=== PATIENT | male | born 1960 | race Caucasian/White ===

== ENCOUNTER 2020-03-27 19:14 | Inpatient (IN) | payer SELFPAY ==
[~2020-03-27] VITALS: Ht 177.8 cm; Wt 81.2 kg
[2020-03-27 21:43] LABS: CLARITY,URINE SL CLOUDY (CLEAR); COLOR,URINE YELLOW (YELLOW); KETONES,URINE 2+ (NEGATIVE); LEUKOCYTE ESTERASE ,URINE NEGATIVE (NEGATIVE); NITRITE,URINE NEGATIVE (NEGATIVE); PROTEIN,URINE DIPSTICK NEGATIVE (NEGATIVE); URINE UROBILINOGEN 0.2 mg/dL (0.2 - 1)
[2020-03-27 21:55] LABS: EPITHELIAL CELLS,URINE FEW /LPF; RBC,URINE 0-5 /HPF (0-5)
[2020-03-27] MEDS ORDERED: DIAZEPAM 5 MG TAB PO SCH (23:00)
[2020-03-27] MEDS ORDERED: KETOROLAC TROMETHAMINE 60 MG/2 ML VIAL IM ONE (23:00)
[2020-03-27] MEDS ORDERED: METHYLPREDNISOLONE SOD SUCC 125 MG/2ML VIAL IM ONE (23:00)
[2020-03-28] VITALS (8 sets, daily range): BP systolic 116–174; BP diastolic 55–105
[2020-03-28] MEDS ORDERED: METHYLPREDNISOLONE SOD SUCC 125 MG/2ML VIAL IM ONE (00:30)
[2020-03-28] MEDS ORDERED: KETOROLAC TROMETHAMINE 60 MG/2 ML VIAL IM ONE (00:30)
[2020-03-28] MEDS ORDERED: KETOROLAC TROMETHAMINE 60 MG/2 ML VIAL ONE (00:31)
[2020-03-28] MEDS ORDERED: LIDOCAINE 4% PATCH TP ONE ×2 (00:32→01:45)
[2020-03-28] MEDS: DIAZEPAM 5 MG TAB PO SCH (00:32)
[2020-03-28] MEDS ORDERED: ONDANSETRON HCL INJ 2MG/ML 2ML 2 MG/ML VIAL IV PRN (04:30)
[2020-03-28 05:10] LABS: BASOPHILS % 0.3 % (0.0-1.0); EOSINOPHILS % 0.2 % (0.0-6.0); HEMATOCRIT 46.5 % (38.2-49.6); HEMOGLOBIN 14.9 g/dL (14.0-18.0); LYMPHOCYTES # (AUTO) 0.5 (1.0-3.2); LYMPHOCYTES % 8.5 % (18.0-39.1); MEAN CORPUSCULAR HEMOGLOBIN 25.8 pg (28-32); MEAN CORPUSCULAR VOLUME 80.4 fL (81-99); MONOCYTES # (AUTO) 0.1 (0.2-0.8); MONOCYTES % 1.8 % (4.4-11.3); NEUTROPHILS # (AUTO) 5.3 (2.1-6.9); NEUTROPHILS % 88.7 % (38.7-80.0); PLATELET COUNT 296 x10e3/uL (140-360); RED BLOOD COUNT 5.78 x10e6/uL (4.3-5.7); RED CELL DISTRIBUTION WIDTH 14.6 % (11.7-14.4)
[2020-03-28 05:27] LABS: ALANINE AMINOTRANSFERASE 27 IU/L (0-55); ALBUMIN 3.8 g/dL (3.5-5.0); ALBUMIN/GLOBULIN RATIO 1.4 (0.8-2.0); ALKALINE PHOSPHATASE 66 IU/L (40-150); ANION GAP 13.8 mmol/L (8-16); BLOOD UREA NITROGEN 7 mg/dL (7-26); BUN/CREATININE RATIO 8 (6-25); CALCIUM 8.7 mg/dL (8.4-10.2); CARBON DIOXIDE 25 mmol/L (22-29); CHLORIDE 104 mmol/L (98-107); CREATININE, SERUM 0.83 mg/dL (0.72-1.25); EST GLOMERULAR FILTRATION RATE > 60 ML/MIN (60-); GLUCOSE 124 mg/dL (74-118); POTASSIUM 3.8 mmol/L (3.5-5.1); SODIUM 139 mmol/L (136-145)
[2020-03-28] MEDS ORDERED: LOSARTAN POTAS100 MG PO (06:26)
[2020-03-28] MEDS ORDERED: AMLODIPINE PO (06:26)
[2020-03-28] MEDS ORDERED: HYDROCHLOROTHIA25 MG PO (06:26)
[2020-03-28] MEDS ORDERED: HYDRALAZINE HCL 20 MG/ML VIAL IV PRN (10:15)
[2020-03-28] MEDS ORDERED: AMLODIPINE PO SCH (12:45)
[2020-03-28] MEDS: LOSARTAN POTASSIUM 100 MG TAB PO SCH (13:32)
[2020-03-28] MEDS: HYDROCHLOROTHIAZIDE 25 MG TAB PO SCH (13:33)
[2020-03-28] MEDS: AMLODIPINE BESYLATE 10 MG TAB PO SCH (13:34)
[2020-03-28] MEDS: DEXTROSE 5%/0.45% SOD CHL 1,000 ML IV SCH (16:00)
[2020-03-28] MEDS: FAMOTIDINE 20 MG/2 ML VIAL IV SCH (17:17)
[2020-03-29] VITALS (8 sets, daily range): BP systolic 123–151; BP diastolic 71–92
[2020-03-29 05:54] LABS: BASOPHILS % 0.4 % (0.0-1.0); EOSINOPHILS # (AUTO) 0.1 (0.0-0.4); EOSINOPHILS % 0.6 % (0.0-6.0); HEMOGLOBIN 15.8 g/dL (14.0-18.0); LYMPHOCYTES # (AUTO) 2.2 (1.0-3.2); LYMPHOCYTES % 26.9 % (18.0-39.1); MEAN CORPUSCULAR HEMOGLOBIN 25.9 pg (28-32); MEAN CORPUSCULAR HGB CONC 32.2 g/dL (31-35); MEAN CORPUSCULAR VOLUME 80.2 fL (81-99); MONOCYTES # (AUTO) 0.9 (0.2-0.8); NEUTROPHILS % 60.6 % (38.7-80.0); PLATELET COUNT 330 x10e3/uL (140-360); RED BLOOD COUNT 6.11 x10e6/uL (4.3-5.7); RED CELL DISTRIBUTION WIDTH 14.8 % (11.7-14.4)
[2020-03-29 06:29] LABS: ANION GAP 13.4 mmol/L (8-16); BLOOD UREA NITROGEN 12 mg/dL (7-26); BUN/CREATININE RATIO 11 (6-25); CALCIUM 8.9 mg/dL (8.4-10.2); CARBON DIOXIDE 25 mmol/L (22-29); CHLORIDE 104 mmol/L (98-107); CHOL/HDL RATIO 1.9 (3.9-4.7); CHOLESTEROL 137 MD/DL (0-199); CREATININE, SERUM 1.12 mg/dL (0.72-1.25); EST GLOMERULAR FILTRATION RATE > 60 ML/MIN (60-); GLUCOSE 121 mg/dL (74-118); HDL CHOLESTEROL 74 MG/DL (40-60); LDL CHOLESTEROL 55 MG/DL (60-130); MAGNESIUM 2.1 MG/DL (1.3-2.1); PHOSPHORUS 3.7 MG/DL (2.3-4.7); POTASSIUM 3.4 mmol/L (3.5-5.1); SODIUM 139 mmol/L (136-145); TRIGLYCERIDES 39 MG/DL (0-149)
[2020-03-29 07:06] LABS: THYROID STIMULATING HORMONE 1.362 uIU/mL (0.350-4.940)
[2020-03-29] MEDS: DEXTROSE 5%/0.45% SOD CHL 1,000 ML IV SCH ×3 (07:30→21:31)
[2020-03-29] MEDS: DIAZEPAM 5 MG TAB PO SCH (09:00)
[2020-03-29] MEDS: FAMOTIDINE 20 MG/2 ML VIAL IV SCH ×2 (09:03→17:07)
[2020-03-29] MEDS: MORPHINE SULFATE INJ 4 MG/ML INJ 1ML IV PRN (09:03)
[2020-03-29] MEDS: HYDROCHLOROTHIAZIDE 25 MG TAB PO SCH (09:04)
[2020-03-29] MEDS: AMLODIPINE BESYLATE 10 MG TAB PO SCH (09:04)
[2020-03-29] MEDS: LOSARTAN POTASSIUM 100 MG TAB PO SCH (09:04)
[2020-03-29] MEDS ORDERED: BISACODYL 5 MG TAB EC PO ONE ×3 (20:30→21:30)
[2020-03-29] MEDS ORDERED: CITRATE OF MAGNESIA 300ML BOTTLE PO ONE (23:00)
[2020-03-30] VITALS (7 sets, daily range): BP systolic 128–155; BP diastolic 88–96
[2020-03-30] MEDS ORDERED: CITRATE OF MAGNESIA 300ML BOTTLE PO ONE (05:00)
[2020-03-30 05:47] LABS: BASOPHILS # (AUTO) 0.1 (0.0-0.1); BASOPHILS % 0.6 % (0.0-1.0); EOSINOPHILS # (AUTO) 0.2 (0.0-0.4); EOSINOPHILS % 1.9 % (0.0-6.0); HEMATOCRIT 53.3 % (38.2-49.6); HEMOGLOBIN 16.7 g/dL (14.0-18.0); LYMPHOCYTES # (AUTO) 2.3 (1.0-3.2); LYMPHOCYTES % 27.9 % (18.0-39.1); MEAN CORPUSCULAR HEMOGLOBIN 25.7 pg (28-32); MEAN CORPUSCULAR HGB CONC 31.3 g/dL (31-35); MEAN CORPUSCULAR VOLUME 81.9 fL (81-99); MONOCYTES # (AUTO) 0.8 (0.2-0.8); MONOCYTES % 10.3 % (4.4-11.3); NEUTROPHILS # (AUTO) 4.7 (2.1-6.9); NEUTROPHILS % 58.3 % (38.7-80.0); PLATELET COUNT 350 x10e3/uL (140-360); RED BLOOD COUNT 6.51 x10e6/uL (4.3-5.7); RED CELL DISTRIBUTION WIDTH 15.7 % (11.7-14.4)
[2020-03-30 06:07] LABS: ANION GAP 12.5 mmol/L (8-16); BLOOD UREA NITROGEN 9 mg/dL (7-26); BUN/CREATININE RATIO 9 (6-25); CALCIUM 9.5 mg/dL (8.4-10.2); CARBON DIOXIDE 25 mmol/L (22-29); CHLORIDE 103 mmol/L (98-107); CREATININE, SERUM 1.04 mg/dL (0.72-1.25); EST GLOMERULAR FILTRATION RATE > 60 ML/MIN (60-); GLUCOSE 127 mg/dL (74-118); POTASSIUM 3.5 mmol/L (3.5-5.1); SODIUM 137 mmol/L (136-145)
[2020-03-30] MEDS: DEXTROSE 5%/0.45% SOD CHL 1,000 ML IV SCH ×2 (06:33→15:59)
[2020-03-30] MEDS: AMLODIPINE BESYLATE 10 MG TAB PO SCH (09:00)
[2020-03-30] MEDS: LOSARTAN POTASSIUM 100 MG TAB PO SCH (09:00)
[2020-03-30] MEDS: DIAZEPAM 5 MG TAB PO SCH (09:00)
[2020-03-30] MEDS: HYDROCHLOROTHIAZIDE 25 MG TAB PO SCH (09:00)
[2020-03-30] MEDS: FAMOTIDINE 20 MG/2 ML VIAL IV SCH ×2 (09:55→18:04)
[2020-03-30] MEDS ORDERED: FENTANYL CITRATE/PF 100MCG/2 ML INJ ONE (12:47)
[2020-03-30] MEDS ORDERED: MIDAZOLAM HCL 2 MG/2 ML VIAL ONE (12:47)
[2020-03-30] MEDS ORDERED: PROPOFOL IV EMULSION 10 MG/ML 20 ML VIAL ONE (12:52)
[2020-03-30] MEDS ORDERED: MINERAL OIL/PETROLAT/GLYCERI 6OZ BTL TOP SCH (15:00)
[2020-03-30] MEDS: MINERAL OIL/PETROLAT/GLYCERI 6OZ BTL TOP SCH ×2 (18:03→21:00)
[2020-03-31] VITALS (9 sets, daily range): BP systolic 102–149; BP diastolic 63–100
[2020-03-31] MEDS: MORPHINE SULFATE INJ 4 MG/ML INJ 1ML IV PRN ×3 (00:35→15:41)
[2020-03-31] MEDS: DEXTROSE 5%/0.45% SOD CHL 1,000 ML IV SCH ×3 (01:17→22:48)
[2020-03-31 05:12] LABS: BASOPHILS % 0.3 % (0.0-1.0); EOSINOPHILS # (AUTO) 0.1 (0.0-0.4); EOSINOPHILS % 0.9 % (0.0-6.0); HEMATOCRIT 47.6 % (38.2-49.6); LYMPHOCYTES # (AUTO) 1.8 (1.0-3.2); LYMPHOCYTES % 13.7 % (18.0-39.1); MEAN CORPUSCULAR HEMOGLOBIN 25.4 pg (28-32); MEAN CORPUSCULAR HGB CONC 31.5 g/dL (31-35); MEAN CORPUSCULAR VOLUME 80.7 fL (81-99); MONOCYTES # (AUTO) 0.8 (0.2-0.8); MONOCYTES % 6.4 % (4.4-11.3); NEUTROPHILS # (AUTO) 10.1 (2.1-6.9); NEUTROPHILS % 78.2 % (38.7-80.0); PLATELET COUNT 279 x10e3/uL (140-360); RED CELL DISTRIBUTION WIDTH 14.6 % (11.7-14.4)
[2020-03-31 05:40] LABS: ANION GAP 8.9 mmol/L (8-16); BLOOD UREA NITROGEN 10 mg/dL (7-26); BUN/CREATININE RATIO 10 (6-25); CALCIUM 8.1 mg/dL (8.4-10.2); CARBON DIOXIDE 28 mmol/L (22-29); CHLORIDE 106 mmol/L (98-107); CREATININE, SERUM 0.97 mg/dL (0.72-1.25); EST GLOMERULAR FILTRATION RATE > 60 ML/MIN (60-); GLUCOSE 104 mg/dL (74-118); POTASSIUM 3.9 mmol/L (3.5-5.1); SODIUM 139 mmol/L (136-145)
[2020-03-31] MEDS: MINERAL OIL/PETROLAT/GLYCERI 6OZ BTL TOP SCH ×3 (07:22→20:46)
[2020-03-31] MEDS: DIAZEPAM 5 MG TAB PO SCH (07:22)
[2020-03-31] MEDS: LOSARTAN POTASSIUM 100 MG TAB PO SCH (07:22)
[2020-03-31] MEDS: FAMOTIDINE 20 MG/2 ML VIAL IV SCH ×2 (07:22→17:18)
[2020-03-31] MEDS: HYDROCHLOROTHIAZIDE 25 MG TAB PO SCH (07:22)
[2020-03-31] MEDS: AMLODIPINE BESYLATE 10 MG TAB PO SCH (07:23)
[2020-04-01] VITALS (8 sets, daily range): BP systolic 106–138; BP diastolic 68–90
[2020-04-01 05:50] LABS: ANION GAP 10.5 mmol/L (8-16); BLOOD UREA NITROGEN 11 mg/dL (7-26); BUN/CREATININE RATIO 12 (6-25); CALCIUM 8.3 mg/dL (8.4-10.2); CARBON DIOXIDE 28 mmol/L (22-29); CHLORIDE 104 mmol/L (98-107); CREATININE, SERUM 0.95 mg/dL (0.72-1.25); EST GLOMERULAR FILTRATION RATE > 60 ML/MIN (60-); GLUCOSE 102 mg/dL (74-118); POTASSIUM 3.5 mmol/L (3.5-5.1); SODIUM 139 mmol/L (136-145)
[2020-04-01 05:53] LABS: BASOPHILS % 0.5 % (0.0-1.0); EOSINOPHILS # (AUTO) 0.2 (0.0-0.4); EOSINOPHILS % 2.1 % (0.0-6.0); HEMATOCRIT 43.6 % (38.2-49.6); LYMPHOCYTES # (AUTO) 2.2 (1.0-3.2); LYMPHOCYTES % 25.8 % (18.0-39.1); MEAN CORPUSCULAR HEMOGLOBIN 26.1 pg (28-32); MEAN CORPUSCULAR HGB CONC 32.1 g/dL (31-35); MEAN CORPUSCULAR VOLUME 81.2 fL (81-99); MONOCYTES # (AUTO) 0.9 (0.2-0.8); MONOCYTES % 9.9 % (4.4-11.3); NEUTROPHILS # (AUTO) 5.2 (2.1-6.9); NEUTROPHILS % 60.8 % (38.7-80.0); PLATELET COUNT 274 x10e3/uL (140-360); RED BLOOD COUNT 5.37 x10e6/uL (4.3-5.7); RED CELL DISTRIBUTION WIDTH 14.6 % (11.7-14.4)
[2020-04-01] MEDS ORDERED: POTASSIUM CHLORIDE 20 MEQ in DEXTROSE 5%/0.45% SOD CHL 1,000 ML IV SCH (08:07)
[2020-04-01] MEDS: FAMOTIDINE 20 MG/2 ML VIAL IV SCH ×2 (08:44→17:47)
[2020-04-01] MEDS: HYDROCHLOROTHIAZIDE 25 MG TAB PO SCH (08:45)
[2020-04-01] MEDS: AMLODIPINE BESYLATE 10 MG TAB PO SCH (08:45)
[2020-04-01] MEDS: LOSARTAN POTASSIUM 100 MG TAB PO SCH (08:46)
[2020-04-01] MEDS: DIAZEPAM 5 MG TAB PO SCH (08:46)
[2020-04-01] MEDS: MINERAL OIL/PETROLAT/GLYCERI 6OZ BTL TOP SCH ×3 (08:46→20:20)
[2020-04-01] MEDS ORDERED: POTASSIUM CHLORIDE 20 MEQ TAB CR PO NR (09:04)
[2020-04-01] MEDS ORDERED: PEG (High)/E-LYTE SOLN 4,000 ML BTL PO NR (10:00)
[2020-04-01] MEDS: D5.45%NS/KCL 20MEQ 1,000 ML IV SCH (16:33)
[2020-04-02] VITALS (7 sets, daily range): BP systolic 126–138; BP diastolic 80–93
[2020-04-02] MEDS: D5.45%NS/KCL 20MEQ 1,000 ML IV SCH ×3 (03:12→20:55)
[2020-04-02 06:17] LABS: BASOPHILS % 0.7 % (0.0-1.0); EOSINOPHILS # (AUTO) 0.2 (0.0-0.4); EOSINOPHILS % 3.7 % (0.0-6.0); HEMOGLOBIN 13.8 g/dL (14.0-18.0); LYMPHOCYTES # (AUTO) 1.5 (1.0-3.2); LYMPHOCYTES % 26.6 % (18.0-39.1); MEAN CORPUSCULAR HEMOGLOBIN 25.5 pg (28-32); MEAN CORPUSCULAR HGB CONC 32.1 g/dL (31-35); MEAN CORPUSCULAR VOLUME 79.5 fL (81-99); MONOCYTES # (AUTO) 0.6 (0.2-0.8); NEUTROPHILS # (AUTO) 3.3 (2.1-6.9); NEUTROPHILS % 57.3 % (38.7-80.0); PLATELET COUNT 259 x10e3/uL (140-360); RED BLOOD COUNT 5.41 x10e6/uL (4.3-5.7); RED CELL DISTRIBUTION WIDTH 14.9 % (11.7-14.4)
[2020-04-02 06:39] LABS: ALANINE AMINOTRANSFERASE 23 IU/L (0-55); ALBUMIN 2.9 g/dL (3.5-5.0); ALBUMIN/GLOBULIN RATIO 1.1 (0.8-2.0); ALKALINE PHOSPHATASE 48 IU/L (40-150); ANION GAP 10.5 mmol/L (8-16); BLOOD UREA NITROGEN 7 mg/dL (7-26); BUN/CREATININE RATIO 9 (6-25); CALCIUM 8.3 mg/dL (8.4-10.2); CARBON DIOXIDE 28 mmol/L (22-29); CHLORIDE 104 mmol/L (98-107); CREATININE, SERUM 0.77 mg/dL (0.72-1.25); EST GLOMERULAR FILTRATION RATE > 60 ML/MIN (60-); GLUCOSE 123 mg/dL (74-118); POTASSIUM 3.5 mmol/L (3.5-5.1); SODIUM 139 mmol/L (136-145)
[2020-04-02 07:00] LABS: MAGNESIUM 1.9 MG/DL (1.3-2.1); PHOSPHORUS 3.4 MG/DL (2.3-4.7)
[2020-04-02] MEDS: LOSARTAN POTASSIUM 100 MG TAB PO SCH (09:29)
[2020-04-02] MEDS: FAMOTIDINE 20 MG/2 ML VIAL IV SCH ×2 (09:29→18:04)
[2020-04-02] MEDS: MINERAL OIL/PETROLAT/GLYCERI 6OZ BTL TOP SCH ×3 (09:30→21:26)
[2020-04-02] MEDS: DIAZEPAM 5 MG TAB PO SCH (09:30)
[2020-04-02] MEDS: HYDROCHLOROTHIAZIDE 25 MG TAB PO SCH (09:30)
[2020-04-02] MEDS: AMLODIPINE BESYLATE 10 MG TAB PO SCH (09:30)
[2020-04-02] MEDS ORDERED: BUPIVACAINE 0.5%/EPI 30 ML SDV INJ ONE (11:25)
[2020-04-02] MEDS ORDERED: MORPHINE SULFATE INJ 10 MG/ML ONE (13:00)
[2020-04-02] MEDS ORDERED: FENTANYL CITRATE/PF 100MCG/2 ML INJ ONE (13:00)
[2020-04-02] MEDS ORDERED: ATROPINE SULFATE 1 MG/ML VIAL ONE (13:23)
[2020-04-02] MEDS ORDERED: CEFAZOLIN SOD 1 GM VIAL ONE (13:23)
[2020-04-02] MEDS ORDERED: SEVOFLURANE INHAL SOLN 250 ML PEN BTL ONE (13:23)
[2020-04-02] MEDS ORDERED: ONDANSETRON HCL INJ 2MG/ML 2ML 2 MG/ML VIAL ONE (13:23)
[2020-04-02] MEDS ORDERED: DEXAMETHASONE SOD PHOS INJ 4 MG/ML VIAL ONE (13:23)
[2020-04-02] MEDS ORDERED: ROCURONIUM BROMIDE 10 MG/ML 5ML VIAL IV ONE (13:23)
[2020-04-02] MEDS ORDERED: CEFOXITIN SOD 1 GM VIAL ONE (13:23)
[2020-04-02] MEDS ORDERED: NEOSTIGMINE 1 MG/ML 10ML VIAL ONE (13:23)
[2020-04-02] MEDS ORDERED: PROPOFOL IV EMULSION 10 MG/ML 20 ML VIAL ONE (13:23)
[2020-04-02] MEDS ORDERED: KETOROLAC TROMETHAMINE 30 MG/ML VIAL ONE (13:23)
[2020-04-02] MEDS ORDERED: CEFOXITIN 1GM/0.9% NS 50ML 100 ML IV ONE (15:50)
[2020-04-02] MEDS: ONDANSETRON HCL 4 MG ORAL DISINTEGRATING TAB PO PRN ×2 (18:05→22:19)
[2020-04-02] MEDS: MORPHINE SULFATE INJ 4 MG/ML INJ 1ML IV PRN ×2 (18:06→22:19)
[2020-04-03] VITALS (8 sets, daily range): BP systolic 108–142; BP diastolic 75–91
[2020-04-03] MEDS: CEFOXITIN 1GM/0.9% NS 50ML 50 ML IV SCH ×5 (01:48→23:26)
[2020-04-03] MEDS: ONDANSETRON HCL 4 MG ORAL DISINTEGRATING TAB PO PRN ×3 (02:40→19:22)
[2020-04-03] MEDS: MORPHINE SULFATE INJ 4 MG/ML INJ 1ML IV PRN ×2 (02:40→07:28)
[2020-04-03] MEDS: D5.45%NS/KCL 20MEQ 1,000 ML IV SCH ×3 (03:13→20:55)
[2020-04-03 05:48] LABS: BASOPHILS % 0.1 % (0.0-1.0); EOSINOPHILS % 0.1 % (0.0-6.0); HEMATOCRIT 40.4 % (38.2-49.6); HEMOGLOBIN 13.1 g/dL (14.0-18.0); LYMPHOCYTES # (AUTO) 0.8 (1.0-3.2); LYMPHOCYTES % 6.8 % (18.0-39.1); MEAN CORPUSCULAR HEMOGLOBIN 25.8 pg (28-32); MEAN CORPUSCULAR HGB CONC 32.4 g/dL (31-35); MEAN CORPUSCULAR VOLUME 79.5 fL (81-99); MONOCYTES # (AUTO) 1.2 (0.2-0.8); MONOCYTES % 10.1 % (4.4-11.3); NEUTROPHILS # (AUTO) 9.9 (2.1-6.9); NEUTROPHILS % 82.2 % (38.7-80.0); PLATELET COUNT 247 x10e3/uL (140-360); RED BLOOD COUNT 5.08 x10e6/uL (4.3-5.7); RED CELL DISTRIBUTION WIDTH 14.8 % (11.7-14.4)
[2020-04-03 06:15] LABS: ALANINE AMINOTRANSFERASE 22 IU/L (0-55); ALBUMIN 2.7 g/dL (3.5-5.0); ALKALINE PHOSPHATASE 39 IU/L (40-150); ANION GAP 13.6 mmol/L (8-16); BLOOD UREA NITROGEN 7 mg/dL (7-26); BUN/CREATININE RATIO 8 (6-25); CALCIUM 8.1 mg/dL (8.4-10.2); CARBON DIOXIDE 23 mmol/L (22-29); CHLORIDE 103 mmol/L (98-107); CREATININE, SERUM 0.87 mg/dL (0.72-1.25); EST GLOMERULAR FILTRATION RATE > 60 ML/MIN (60-); GLUCOSE 160 mg/dL (74-118); LIPASE 20 U/L (8-78); POTASSIUM 3.6 mmol/L (3.5-5.1); SODIUM 136 mmol/L (136-145)
[2020-04-03] MEDS ORDERED: MORPHINE SULFATE INJ 4 MG/ML INJ 1ML IV PRN (08:15)
[2020-04-03] MEDS: FAMOTIDINE 20 MG/2 ML VIAL IV SCH ×2 (08:44→17:16)
[2020-04-03] MEDS: HYDROCHLOROTHIAZIDE 25 MG TAB PO SCH (08:45)
[2020-04-03] MEDS: LOSARTAN POTASSIUM 100 MG TAB PO SCH (08:45)
[2020-04-03] MEDS: AMLODIPINE BESYLATE 10 MG TAB PO SCH (08:45)
[2020-04-03] MEDS: DIAZEPAM 5 MG TAB PO SCH (08:46)
[2020-04-03] MEDS: MINERAL OIL/PETROLAT/GLYCERI 6OZ BTL TOP SCH ×3 (08:47→21:46)
[2020-04-03] MEDS: ACETAMINOPHEN/CODEINE 300MG - 30MG TAB PO PRN ×3 (08:51→21:40)
[2020-04-03] MEDS ORDERED: LACTATED RINGER'S 1,000 ML INJ SCH (12:30)
[2020-04-03] MEDS: HYDROMORPHONE 1MG/1ML INJ IV PRN (19:22)
[2020-04-04] VITALS (7 sets, daily range): BP systolic 116–132; BP diastolic 70–86
[2020-04-04] MEDS: HYDROMORPHONE 1MG/1ML INJ IV PRN ×6 (01:44→22:40)
[2020-04-04] MEDS: ONDANSETRON HCL 4 MG ORAL DISINTEGRATING TAB PO PRN (01:44)
[2020-04-04] MEDS: D5.45%NS/KCL 20MEQ 1,000 ML IV SCH ×3 (03:03→19:00)
[2020-04-04] MEDS: ACETAMINOPHEN/CODEINE 300MG - 30MG TAB PO PRN (03:48)
[2020-04-04 06:31] LABS: BASOPHILS % 0.2 % (0.0-1.0); EOSINOPHILS # (AUTO) 0.1 (0.0-0.4); EOSINOPHILS % 0.9 % (0.0-6.0); HEMATOCRIT 39.2 % (38.2-49.6); HEMOGLOBIN 12.6 g/dL (14.0-18.0); LYMPHOCYTES % 9.1 % (18.0-39.1); MEAN CORPUSCULAR HEMOGLOBIN 25.6 pg (28-32); MEAN CORPUSCULAR HGB CONC 32.1 g/dL (31-35); MEAN CORPUSCULAR VOLUME 79.5 fL (81-99); MONOCYTES # (AUTO) 1.3 (0.2-0.8); MONOCYTES % 11.9 % (4.4-11.3); NEUTROPHILS # (AUTO) 8.3 (2.1-6.9); NEUTROPHILS % 76.9 % (38.7-80.0); PLATELET COUNT 249 x10e3/uL (140-360); RED BLOOD COUNT 4.93 x10e6/uL (4.3-5.7); RED CELL DISTRIBUTION WIDTH 15.3 % (11.7-14.4)
[2020-04-04 07:01] LABS: ALANINE AMINOTRANSFERASE 19 IU/L (0-55); ALBUMIN 2.5 g/dL (3.5-5.0); ALBUMIN/GLOBULIN RATIO 0.8 (0.8-2.0); ALKALINE PHOSPHATASE 48 IU/L (40-150); ANION GAP 12.3 mmol/L (8-16); BLOOD UREA NITROGEN 5 mg/dL (7-26); BUN/CREATININE RATIO 6 (6-25); CALCIUM 8.4 mg/dL (8.4-10.2); CARBON DIOXIDE 26 mmol/L (22-29); CHLORIDE 101 mmol/L (98-107); CREATININE, SERUM 0.84 mg/dL (0.72-1.25); EST GLOMERULAR FILTRATION RATE > 60 ML/MIN (60-); GLUCOSE 125 mg/dL (74-118); POTASSIUM 3.3 mmol/L (3.5-5.1); SODIUM 136 mmol/L (136-145)
[2020-04-04] MEDS: LOSARTAN POTASSIUM 100 MG TAB PO SCH (09:05)
[2020-04-04] MEDS: AMLODIPINE BESYLATE 10 MG TAB PO SCH (09:05)
[2020-04-04] MEDS: HYDROCHLOROTHIAZIDE 25 MG TAB PO SCH (09:05)
[2020-04-04] MEDS: MINERAL OIL/PETROLAT/GLYCERI 6OZ BTL TOP SCH ×3 (09:06→21:00)
[2020-04-04] MEDS: FAMOTIDINE 20 MG/2 ML VIAL IV SCH ×2 (09:09→17:41)
[2020-04-04] MEDS ORDERED: POTASSIUM CHLORIDE 10MEQ EA PO ONE (09:40)
[2020-04-04] MEDS: DOCUSATE SODIUM 100 MG CAP PO SCH (17:41)
[2020-04-04] MEDS ORDERED: CEFOXITIN 1GM/0.9% NS 50ML 50 ML IV SCH (18:00)
[2020-04-04] MEDS: LIDOCAINE 4% PATCH TP SCH (18:05)
[2020-04-05] VITALS (7 sets, daily range): BP systolic 122–155; BP diastolic 78–90
[2020-04-05] MEDS: HYDROMORPHONE 1MG/1ML INJ IV PRN ×5 (03:39→23:25)
[2020-04-05] MEDS: D5.45%NS/KCL 20MEQ 1,000 ML IV SCH ×3 (04:38→21:28)
[2020-04-05] MEDS: FAMOTIDINE 20 MG/2 ML VIAL IV SCH ×2 (08:21→17:17)
[2020-04-05] MEDS: LIDOCAINE 4% PATCH TP SCH (08:22)
[2020-04-05] MEDS: MINERAL OIL/PETROLAT/GLYCERI 6OZ BTL TOP SCH ×3 (08:22→21:24)
[2020-04-05] MEDS: AMLODIPINE BESYLATE 10 MG TAB PO SCH (08:22)
[2020-04-05] MEDS: HYDROCHLOROTHIAZIDE 25 MG TAB PO SCH (08:22)
[2020-04-05] MEDS: DOCUSATE SODIUM 100 MG CAP PO SCH ×2 (08:22→17:17)
[2020-04-05] MEDS: LOSARTAN POTASSIUM 100 MG TAB PO SCH (08:22)
[2020-04-05 09:19] LABS: BASOPHILS # (AUTO) 0.1 (0.0-0.1); EOSINOPHILS # (AUTO) 0.2 (0.0-0.4); EOSINOPHILS % 1.6 % (0.0-6.0); HEMATOCRIT 43.5 % (38.2-49.6); HEMOGLOBIN 13.7 g/dL (14.0-18.0); LYMPHOCYTES # (AUTO) 0.8 (1.0-3.2); LYMPHOCYTES % 8.6 % (18.0-39.1); MEAN CORPUSCULAR HEMOGLOBIN 25.8 pg (28-32); MEAN CORPUSCULAR HGB CONC 31.5 g/dL (31-35); MEAN CORPUSCULAR VOLUME 82.1 fL (81-99); MONOCYTES # (AUTO) 0.9 (0.2-0.8); MONOCYTES % 9.6 % (4.4-11.3); NEUTROPHILS # (AUTO) 7.2 (2.1-6.9); NEUTROPHILS % 77.8 % (38.7-80.0); PLATELET COUNT 222 x10e3/uL (140-360); RED CELL DISTRIBUTION WIDTH 15.3 % (11.7-14.4)
[2020-04-05 09:46] LABS: ANION GAP 11.5 mmol/L (8-16); BLOOD UREA NITROGEN 5 mg/dL (7-26); BUN/CREATININE RATIO 7 (6-25); CALCIUM 8.7 mg/dL (8.4-10.2); CARBON DIOXIDE 26 mmol/L (22-29); CHLORIDE 101 mmol/L (98-107); CREATININE, SERUM 0.71 mg/dL (0.72-1.25); EST GLOMERULAR FILTRATION RATE > 60 ML/MIN (60-); GLUCOSE 140 mg/dL (74-118); MAGNESIUM 1.9 MG/DL (1.3-2.1); POTASSIUM 3.5 mmol/L (3.5-5.1); SODIUM 135 mmol/L (136-145)
[2020-04-05] MEDS: ACETAMINOPHEN/CODEINE 300MG - 30MG TAB PO PRN ×2 (11:09→17:18)
[2020-04-06] VITALS (8 sets, daily range): BP systolic 105–140; BP diastolic 69–87
[2020-04-06] MEDS: D5.45%NS/KCL 20MEQ 1,000 ML IV SCH ×3 (04:55→23:39)
[2020-04-06] MEDS: ACETAMINOPHEN/CODEINE 300MG - 30MG TAB PO PRN (06:09)
[2020-04-06 07:02] LABS: BASOPHILS # (AUTO) 0.1 (0.0-0.1); BASOPHILS % 0.6 % (0.0-1.0); EOSINOPHILS # (AUTO) 0.3 (0.0-0.4); HEMATOCRIT 39.9 % (38.2-49.6); HEMOGLOBIN 12.7 g/dL (14.0-18.0); LYMPHOCYTES # (AUTO) 1.2 (1.0-3.2); LYMPHOCYTES % 12.6 % (18.0-39.1); MEAN CORPUSCULAR HEMOGLOBIN 25.3 pg (28-32); MEAN CORPUSCULAR HGB CONC 31.8 g/dL (31-35); MEAN CORPUSCULAR VOLUME 79.5 fL (81-99); MONOCYTES # (AUTO) 0.8 (0.2-0.8); NEUTROPHILS # (AUTO) 6.7 (2.1-6.9); NEUTROPHILS % 71.9 % (38.7-80.0); PLATELET COUNT 304 x10e3/uL (140-360); RED BLOOD COUNT 5.02 x10e6/uL (4.3-5.7); RED CELL DISTRIBUTION WIDTH 15.1 % (11.7-14.4)
[2020-04-06 07:28] LABS: ALANINE AMINOTRANSFERASE 15 IU/L (0-55); ALBUMIN 2.5 g/dL (3.5-5.0); ALBUMIN/GLOBULIN RATIO 0.7 (0.8-2.0); ALKALINE PHOSPHATASE 50 IU/L (40-150); ANION GAP 14.4 mmol/L (8-16); BLOOD UREA NITROGEN 5 mg/dL (7-26); BUN/CREATININE RATIO 7 (6-25); CALCIUM 8.8 mg/dL (8.4-10.2); CARBON DIOXIDE 26 mmol/L (22-29); CHLORIDE 100 mmol/L (98-107); CREATININE, SERUM 0.73 mg/dL (0.72-1.25); EST GLOMERULAR FILTRATION RATE > 60 ML/MIN (60-); GLUCOSE 108 mg/dL (74-118); MAGNESIUM 1.8 MG/DL (1.3-2.1); PHOSPHORUS 3.2 MG/DL (2.3-4.7); POTASSIUM 3.4 mmol/L (3.5-5.1); SODIUM 137 mmol/L (136-145)
[2020-04-06] MEDS: FAMOTIDINE 20 MG/2 ML VIAL IV SCH ×2 (09:28→17:27)
[2020-04-06] MEDS: DOCUSATE SODIUM 100 MG CAP PO SCH ×2 (09:28→17:27)
[2020-04-06] MEDS: AMLODIPINE BESYLATE 10 MG TAB PO SCH (09:29)
[2020-04-06] MEDS: LIDOCAINE 4% PATCH TP SCH ×2 (09:29→21:11)
[2020-04-06] MEDS: HYDROCHLOROTHIAZIDE 25 MG TAB PO SCH (09:29)
[2020-04-06] MEDS: MINERAL OIL/PETROLAT/GLYCERI 6OZ BTL TOP SCH ×3 (09:29→21:11)
[2020-04-06] MEDS: LOSARTAN POTASSIUM 100 MG TAB PO SCH (09:36)
[2020-04-06] MEDS: HYDROMORPHONE 1MG/1ML INJ IV PRN ×4 (09:40→23:45)
[2020-04-06] MEDS ORDERED: POTASSIUM CHLORIDE 20MEQ/100ML 200 ML IV ONE (10:00)
[2020-04-07] VITALS (7 sets, daily range): BP systolic 121–145; BP diastolic 77–99
[2020-04-07] MEDS: HYDROMORPHONE 1MG/1ML INJ IV PRN ×4 (04:07→20:08)
[2020-04-07 06:09] LABS: BASOPHILS # (AUTO) 0.1 (0.0-0.1); BASOPHILS % 0.9 % (0.0-1.0); EOSINOPHILS # (AUTO) 0.3 (0.0-0.4); EOSINOPHILS % 2.8 % (0.0-6.0); HEMATOCRIT 40.8 % (38.2-49.6); LYMPHOCYTES % 10.8 % (18.0-39.1); MEAN CORPUSCULAR HEMOGLOBIN 25.5 pg (28-32); MEAN CORPUSCULAR HGB CONC 31.9 g/dL (31-35); MEAN CORPUSCULAR VOLUME 80.2 fL (81-99); MONOCYTES # (AUTO) 0.8 (0.2-0.8); MONOCYTES % 8.8 % (4.4-11.3); NEUTROPHILS # (AUTO) 6.8 (2.1-6.9); PLATELET COUNT 339 x10e3/uL (140-360); RED BLOOD COUNT 5.09 x10e6/uL (4.3-5.7); RED CELL DISTRIBUTION WIDTH 14.8 % (11.7-14.4)
[2020-04-07 06:27] LABS: ALANINE AMINOTRANSFERASE 13 IU/L (0-55); ALBUMIN 2.6 g/dL (3.5-5.0); ALBUMIN/GLOBULIN RATIO 0.7 (0.8-2.0); ALKALINE PHOSPHATASE 51 IU/L (40-150); ANION GAP 14.6 mmol/L (8-16); BLOOD UREA NITROGEN 5 mg/dL (7-26); BUN/CREATININE RATIO 7 (6-25); CARBON DIOXIDE 27 mmol/L (22-29); CHLORIDE 99 mmol/L (98-107); CREATININE, SERUM 0.76 mg/dL (0.72-1.25); EST GLOMERULAR FILTRATION RATE > 60 ML/MIN (60-); GLUCOSE 124 mg/dL (74-118); MAGNESIUM 1.8 MG/DL (1.3-2.1); PHOSPHORUS 3.8 MG/DL (2.3-4.7); POTASSIUM 3.6 mmol/L (3.5-5.1); SODIUM 137 mmol/L (136-145)
[2020-04-07] MEDS: D5.45%NS/KCL 20MEQ 1,000 ML IV SCH ×3 (07:27→20:08)
[2020-04-07] MEDS: FAMOTIDINE 20 MG/2 ML VIAL IV SCH ×2 (08:37→15:39)
[2020-04-07] MEDS: HYDROCHLOROTHIAZIDE 25 MG TAB PO SCH (08:37)
[2020-04-07] MEDS: AMLODIPINE BESYLATE 10 MG TAB PO SCH (08:37)
[2020-04-07] MEDS: LOSARTAN POTASSIUM 100 MG TAB PO SCH (08:37)
[2020-04-07] MEDS: DOCUSATE SODIUM 100 MG CAP PO SCH ×2 (08:37→15:39)
[2020-04-07] MEDS: LIDOCAINE 4% PATCH TP SCH ×2 (08:38→20:08)
[2020-04-07] MEDS: MINERAL OIL/PETROLAT/GLYCERI 6OZ BTL TOP SCH ×3 (08:38→20:08)
[2020-04-07] MEDS: ACETAMINOPHEN/CODEINE 300MG - 30MG TAB PO PRN (10:36)
[2020-04-07] MEDS: ONDANSETRON HCL 4 MG ORAL DISINTEGRATING TAB PO PRN (12:41)
[2020-04-07] MEDS ORDERED: SIMETHICONE 80 MG CHEW PO PRN (14:00)
[2020-04-07] MEDS ORDERED: ONDANSETRON HCL INJ 2MG/ML 2ML 2 MG/ML VIAL IV PRN (20:30)
[2020-04-08] VITALS (8 sets, daily range): BP systolic 93–123; BP diastolic 69–86
[2020-04-08] MEDS: HYDROMORPHONE 1MG/1ML INJ IV PRN (03:07)
[2020-04-08] MEDS: D5.45%NS/KCL 20MEQ 1,000 ML IV SCH ×3 (04:19→20:23)
[2020-04-08 05:28] LABS: BASOPHILS # (AUTO) 0.1 (0.0-0.1); BASOPHILS % 0.7 % (0.0-1.0); EOSINOPHILS # (AUTO) 0.2 (0.0-0.4); EOSINOPHILS % 1.3 % (0.0-6.0); HEMATOCRIT 43.4 % (38.2-49.6); HEMOGLOBIN 13.9 g/dL (14.0-18.0); LYMPHOCYTES # (AUTO) 1.3 (1.0-3.2); LYMPHOCYTES % 10.5 % (18.0-39.1); MEAN CORPUSCULAR HEMOGLOBIN 25.6 pg (28-32); MEAN CORPUSCULAR VOLUME 79.9 fL (81-99); MONOCYTES # (AUTO) 1.2 (0.2-0.8); MONOCYTES % 9.1 % (4.4-11.3); NEUTROPHILS # (AUTO) 9.4 (2.1-6.9); PLATELET COUNT 393 x10e3/uL (140-360); RED BLOOD COUNT 5.43 x10e6/uL (4.3-5.7); RED CELL DISTRIBUTION WIDTH 15.1 % (11.7-14.4)
[2020-04-08] MEDS: PANTOPRAZOLE 40 MG 10ML VIAL IV SCH ×2 (05:52→16:11)
[2020-04-08 05:59] LABS: ALBUMIN 2.3 g/dL (3.5-5.0); ALBUMIN/GLOBULIN RATIO 0.7 (0.8-2.0); ANION GAP 13.9 mmol/L (8-16); CALCIUM 8.4 mg/dL (8.4-10.2); CREATININE, SERUM 1.28 mg/dL (0.72-1.25); POTASSIUM 3.9 mmol/L (3.5-5.1)
[2020-04-08] MEDS: LIDOCAINE 4% PATCH TP SCH ×3 (08:11→20:23)
[2020-04-08] MEDS: MINERAL OIL/PETROLAT/GLYCERI 6OZ BTL TOP SCH ×3 (08:11→20:23)
[2020-04-08] MEDS: FAMOTIDINE 20 MG/2 ML VIAL IV SCH ×2 (08:11→16:11)
[2020-04-08] MEDS: LOSARTAN POTASSIUM 100 MG TAB PO SCH (08:12)
[2020-04-08] MEDS: DOCUSATE SODIUM 100 MG CAP PO SCH ×2 (08:12→16:11)
[2020-04-08] MEDS: AMLODIPINE BESYLATE 10 MG TAB PO SCH (08:13)
[2020-04-08] MEDS: ACETAMINOPHEN/CODEINE 300MG - 30MG TAB PO PRN (08:13)
[2020-04-08] MEDS: HYDROCHLOROTHIAZIDE 25 MG TAB PO SCH (08:15)
[2020-04-08] MEDS ORDERED: MORPHINE SULFATE 2 MG/ML SYR 1ML IV PRN (08:15)
[2020-04-08] MEDS: MORPHINE SULFATE 2 MG/ML SYR 1ML IV PRN ×2 (13:00→20:23)
[2020-04-09] VITALS (8 sets, daily range): BP systolic 112–155; BP diastolic 77–87
[2020-04-09] MEDS: D5.45%NS/KCL 20MEQ 1,000 ML IV SCH ×3 (03:14→21:20)
[2020-04-09] MEDS: MORPHINE SULFATE 2 MG/ML SYR 1ML IV PRN ×3 (03:25→17:22)
[2020-04-09 05:32] LABS: BASOPHILS # (AUTO) 0.1 (0.0-0.1); BASOPHILS % 0.7 % (0.0-1.0); EOSINOPHILS # (AUTO) 0.2 (0.0-0.4); EOSINOPHILS % 2.4 % (0.0-6.0); HEMOGLOBIN 12.2 g/dL (14.0-18.0); LYMPHOCYTES # (AUTO) 1.2 (1.0-3.2); LYMPHOCYTES % 17.2 % (18.0-39.1); MEAN CORPUSCULAR HEMOGLOBIN 25.3 pg (28-32); MEAN CORPUSCULAR HGB CONC 32.1 g/dL (31-35); MEAN CORPUSCULAR VOLUME 78.8 fL (81-99); MONOCYTES # (AUTO) 0.6 (0.2-0.8); MONOCYTES % 9.3 % (4.4-11.3); NEUTROPHILS # (AUTO) 4.4 (2.1-6.9); NEUTROPHILS % 64.9 % (38.7-80.0); PLATELET COUNT 321 x10e3/uL (140-360); RED BLOOD COUNT 4.82 x10e6/uL (4.3-5.7); RED CELL DISTRIBUTION WIDTH 14.9 % (11.7-14.4)
[2020-04-09] MEDS: PANTOPRAZOLE 40 MG 10ML VIAL IV SCH ×2 (05:56→17:21)
[2020-04-09 05:59] LABS: ALANINE AMINOTRANSFERASE 23 IU/L (0-55); ALBUMIN 2.2 g/dL (3.5-5.0); ALBUMIN/GLOBULIN RATIO 0.7 (0.8-2.0); ALKALINE PHOSPHATASE 51 IU/L (40-150); ANION GAP 12.6 mmol/L (8-16); BLOOD UREA NITROGEN 7 mg/dL (7-26); BUN/CREATININE RATIO 9 (6-25); CARBON DIOXIDE 25 mmol/L (22-29); CHLORIDE 104 mmol/L (98-107); EST GLOMERULAR FILTRATION RATE > 60 ML/MIN (60-); GLUCOSE 137 mg/dL (74-118); MAGNESIUM 1.8 MG/DL (1.3-2.1); POTASSIUM 3.6 mmol/L (3.5-5.1); SODIUM 138 mmol/L (136-145)
[2020-04-09 07:26] LABS: ANISOCYTOSIS SLIGHT; EOSINOPHILS % (MANUAL) 5 % (0-7); LYMPHOCYTES % (MANUAL) 22 % (19-48); MONOCYTES % (MANUAL) 9 % (3.4-9.0); NEUTROPHILS % (MANUAL) 63 % (40-74); PLATELET ESTIMATE ADEQUATE; PLATELET MORPHOLOGY COMMENT NORMAL; RBC MORPHOLOGY COMMENT NORMAL
[2020-04-09] MEDS ORDERED: PANTOPRAZOLE SO40 MG PO (08:07)
[2020-04-09] MEDS ORDERED: TYLENOL # 31 EA PO (08:07)
[2020-04-09] MEDS ORDERED: NORVASC10 MG PO (08:07)
[2020-04-09] MEDS: DOCUSATE SODIUM 100 MG CAP PO SCH ×2 (08:17→17:21)
[2020-04-09] MEDS: HYDROCHLOROTHIAZIDE 25 MG TAB PO SCH (08:17)
[2020-04-09] MEDS: LIDOCAINE 4% PATCH TP SCH ×2 (08:18→21:00)
[2020-04-09] MEDS: FAMOTIDINE 20 MG/2 ML VIAL IV SCH ×2 (08:18→17:21)
[2020-04-09] MEDS: LOSARTAN POTASSIUM 100 MG TAB PO SCH (08:18)
[2020-04-09] MEDS: AMLODIPINE BESYLATE 10 MG TAB PO SCH (08:18)
[2020-04-09] MEDS: MINERAL OIL/PETROLAT/GLYCERI 6OZ BTL TOP SCH ×3 (08:40→21:20)
[2020-04-10] VITALS (8 sets, daily range): BP systolic 111–127; BP diastolic 75–84
[2020-04-10 04:14] LABS: BASOPHILS # (AUTO) 0.1 (0.0-0.1); BASOPHILS % 0.7 % (0.0-1.0); EOSINOPHILS # (AUTO) 0.1 (0.0-0.4); EOSINOPHILS % 1.6 % (0.0-6.0); HEMATOCRIT 39.5 % (38.2-49.6); HEMOGLOBIN 12.7 g/dL (14.0-18.0); LYMPHOCYTES # (AUTO) 1.4 (1.0-3.2); LYMPHOCYTES % 21.1 % (18.0-39.1); MEAN CORPUSCULAR HEMOGLOBIN 25.6 pg (28-32); MEAN CORPUSCULAR HGB CONC 32.2 g/dL (31-35); MEAN CORPUSCULAR VOLUME 79.5 fL (81-99); MONOCYTES # (AUTO) 0.6 (0.2-0.8); MONOCYTES % 8.7 % (4.4-11.3); NEUTROPHILS # (AUTO) 4.3 (2.1-6.9); NEUTROPHILS % 62.8 % (38.7-80.0); PLATELET COUNT 353 x10e3/uL (140-360); RED BLOOD COUNT 4.97 x10e6/uL (4.3-5.7); RED CELL DISTRIBUTION WIDTH 15.1 % (11.7-14.4)
[2020-04-10 04:30] LABS: ANION GAP 14.7 mmol/L (8-16); BLOOD UREA NITROGEN 6 mg/dL (7-26); BUN/CREATININE RATIO 8 (6-25); CALCIUM 8.4 mg/dL (8.4-10.2); CARBON DIOXIDE 25 mmol/L (22-29); CHLORIDE 102 mmol/L (98-107); CREATININE, SERUM 0.77 mg/dL (0.72-1.25); EST GLOMERULAR FILTRATION RATE > 60 ML/MIN (60-); GLUCOSE 146 mg/dL (74-118); POTASSIUM 3.7 mmol/L (3.5-5.1); SODIUM 138 mmol/L (136-145)
[2020-04-10] MEDS: ACETAMINOPHEN/CODEINE 300MG - 30MG TAB PO PRN (04:46)
[2020-04-10] MEDS: PANTOPRAZOLE 40 MG 10ML VIAL IV SCH ×2 (05:15→17:10)
[2020-04-10] MEDS: LIDOCAINE 4% PATCH TP SCH ×2 (08:40→20:42)
[2020-04-10] MEDS: D5.45%NS/KCL 20MEQ 1,000 ML IV SCH ×3 (09:01→17:10)
[2020-04-10] MEDS: FAMOTIDINE 20 MG/2 ML VIAL IV SCH ×2 (09:01→17:10)
[2020-04-10] MEDS: MORPHINE SULFATE 2 MG/ML SYR 1ML IV PRN ×2 (09:03→18:29)
[2020-04-10] MEDS: DOCUSATE SODIUM 100 MG CAP PO SCH ×2 (09:03→17:10)
[2020-04-10] MEDS: MINERAL OIL/PETROLAT/GLYCERI 6OZ BTL TOP SCH ×3 (09:03→20:41)
[2020-04-10] MEDS: LOSARTAN POTASSIUM 100 MG TAB PO SCH (09:03)
[2020-04-10] MEDS: HYDROCHLOROTHIAZIDE 25 MG TAB PO SCH (09:03)
[2020-04-10] MEDS: AMLODIPINE BESYLATE 10 MG TAB PO SCH (09:03)
[2020-04-10 09:18] LABS: BAND NEUTROPHILS % (MANUAL) 1 %; EOSINOPHILS % (MANUAL) 2 % (0-7); LYMPHOCYTES % (MANUAL) 19 % (19-48); MONOCYTES % (MANUAL) 8 % (3.4-9.0); NEUTROPHILS % (MANUAL) 70 % (40-74)
[2020-04-10 09:19] LABS: ANISOCYTOSIS SLIGHT; PLATELET ESTIMATE ADEQUATE; PLATELET MORPHOLOGY COMMENT NORMAL; RBC MORPHOLOGY COMMENT NORMAL
[2020-04-10 09:28] LABS: CLARITY,URINE CLEAR (CLEAR); COLOR,URINE YELLOW (YELLOW); KETONES,URINE NEGATIVE (NEGATIVE); LEUKOCYTE ESTERASE ,URINE NEGATIVE (NEGATIVE); NITRITE,URINE NEGATIVE (NEGATIVE); PROTEIN,URINE DIPSTICK NEGATIVE (NEGATIVE); URINE UROBILINOGEN 2 mg/dL (0.2 - 1)
[2020-04-10 09:29] LABS: BACTERIA,URINE FEW /HPF; EPITHELIAL CELLS,URINE FEW /LPF; MUCUS,URINE MANY (RARE); WBC,URINE (MAN) 0-5 /HPF (0-5)
[2020-04-10] MEDS ORDERED: ONDANSETRON HCL 4 MG ORAL DISINTEGRATING TAB PO PRN (11:15)
[2020-04-10] MEDS ORDERED: DIPHENHYDRAMINE HCL INJ 50 MG/ML VIAL IV ONE (12:15)
[2020-04-11] VITALS: BP 124/77
[2020-04-11] MEDS: D5.45%NS/KCL 20MEQ 1,000 ML IV SCH ×2 (00:18→11:24)
[2020-04-11 03:20] LABS: ALANINE AMINOTRANSFERASE 62 IU/L (0-55); ALBUMIN 2.3 g/dL (3.5-5.0); ALBUMIN/GLOBULIN RATIO 0.8 (0.8-2.0); ALKALINE PHOSPHATASE 70 IU/L (40-150); ANION GAP 13.8 mmol/L (8-16); BLOOD UREA NITROGEN < 5 mg/dL (7-26); BUN/CREATININE RATIO 7 (6-25); CALCIUM 8.2 mg/dL (8.4-10.2); CARBON DIOXIDE 21 mmol/L (22-29); CHLORIDE 106 mmol/L (98-107); CREATININE, SERUM 0.76 mg/dL (0.72-1.25); EST GLOMERULAR FILTRATION RATE > 60 ML/MIN (60-); GLUCOSE 130 mg/dL (74-118); POTASSIUM 3.8 mmol/L (3.5-5.1); SODIUM 137 mmol/L (136-145)
[2020-04-11 04:00] VITALS: BP 116/82
[2020-04-11 04:44] LABS: BASOPHILS # (AUTO) 0.1 (0.0-0.1); BASOPHILS % 0.8 % (0.0-1.0); EOSINOPHILS # (AUTO) 0.1 (0.0-0.4); EOSINOPHILS % 1.4 % (0.0-6.0); HEMATOCRIT 37.6 % (38.2-49.6); HEMOGLOBIN 11.9 g/dL (14.0-18.0); LYMPHOCYTES # (AUTO) 1.4 (1.0-3.2); LYMPHOCYTES % 22.2 % (18.0-39.1); MEAN CORPUSCULAR HEMOGLOBIN 25.4 pg (28-32); MEAN CORPUSCULAR HGB CONC 31.6 g/dL (31-35); MEAN CORPUSCULAR VOLUME 80.2 fL (81-99); MONOCYTES # (AUTO) 0.5 (0.2-0.8); MONOCYTES % 7.5 % (4.4-11.3); NEUTROPHILS # (AUTO) 3.9 (2.1-6.9); PLATELET COUNT 363 x10e3/uL (140-360); RED BLOOD COUNT 4.69 x10e6/uL (4.3-5.7); RED CELL DISTRIBUTION WIDTH 14.9 % (11.7-14.4)
[2020-04-11] MEDS: PANTOPRAZOLE 40 MG 10ML VIAL IV SCH ×2 (06:04→17:03)
[2020-04-11 06:44] LABS: EOSINOPHILS % (MANUAL) 2 % (0-7); LYMPHOCYTES % (MANUAL) 25 % (19-48); METAMYELOCYTES % (MANUAL) 2 % (0-0); MONOCYTES % (MANUAL) 11 % (3.4-9.0); NEUTROPHILS % (MANUAL) 60 % (40-74); PLATELET ESTIMATE SLIGHTLY INCREASED
[2020-04-11 06:45] LABS: ANISOCYTOSIS SLIGHT; PLATELET MORPHOLOGY COMMENT RARE EDTA CLUMPING; RBC MORPHOLOGY COMMENT NORMAL
[2020-04-11 07:28] VITALS: BP 135/79
[2020-04-11 07:30] VITALS: BP 135/79
[2020-04-11] MEDS: FAMOTIDINE 20 MG/2 ML VIAL IV SCH ×2 (08:57→17:03)
[2020-04-11] MEDS: LIDOCAINE 4% PATCH TP SCH (08:57)
[2020-04-11] MEDS: HYDROCHLOROTHIAZIDE 25 MG TAB PO SCH (08:58)
[2020-04-11] MEDS: LOSARTAN POTASSIUM 100 MG TAB PO SCH (08:58)
[2020-04-11] MEDS: DOCUSATE SODIUM 100 MG CAP PO SCH ×2 (08:58→17:03)
[2020-04-11] MEDS: MINERAL OIL/PETROLAT/GLYCERI 6OZ BTL TOP SCH ×2 (08:59→14:55)
[2020-04-11] MEDS: AMLODIPINE BESYLATE 10 MG TAB PO SCH (08:59)
[2020-04-11] MEDS ORDERED: ACETAMINOPHEN 325 MG TAB PO PRN (09:00)
[2020-04-11 11:16] VITALS: BP 133/85
[2020-04-11 15:35] VITALS: BP 125/79
== END 2020-04-11 18:16 | disposition home or self-care (01) | DRG 331 ==
LOC: ER 20:14 → ERHOLD 03-28 04:37 → MED/SURG 03-28 06:05
PROVIDERS: ADMIT Internal Medicine; ATTEND Internal Medicine
PROC: 0D7K8DZ Dilation of Ascending Colon with Intraluminal Device, Via Natural or Artificial Opening Endoscopic (ICD-10-PCS; principal; 2020-03-28)
PROC: 0D7L8DZ Dilation of Transverse Colon with Intraluminal Device, Via Natural or Artificial Opening Endoscopic (ICD-10-PCS; 2020-03-28)
PROC: 0D7N8DZ Dilation of Sigmoid Colon with Intraluminal Device, Via Natural or Artificial Opening Endoscopic (ICD-10-PCS; 2020-03-28)
PROC: 0D7M8DZ Dilation of Descending Colon with Intraluminal Device, Via Natural or Artificial Opening Endoscopic (ICD-10-PCS; 2020-03-28)
PROC: 02HV33Z Insertion of Infusion Device into Superior Vena Cava, Percutaneous Approach (ICD-10-PCS; 2020-04-01)
PROC: 0DBL0ZZ Excision of Transverse Colon, Open Approach (ICD-10-PCS; 2020-04-02)
PROC: 0DTN0ZZ Resection of Sigmoid Colon, Open Approach (ICD-10-PCS; 2020-04-02)
DX: K56.1 Intussusception (principal); I10 Essential (primary) hypertension; K63.5 Polyp of colon; Z59.9 Problem related to housing and economic circumstances, unspecified; K64.8 Other hemorrhoids; Z20.828 Contact with and (suspected) exposure to other viral communicable diseases; E87.6 Hypokalemia; K63.9 Disease of intestine, unspecified; M54.5 Low back pain
CPT/HCPCS: 36415; 36569; 45380; 45385; 71045; 71046; 74018; 74019; 74176; 80048; 80053; 80061; 81001; 82150; 82948; 83036; 83690; 83735; 84100; 84443; 85025; 87086; 88305; 88307; 93005; 93306; 96361; 99284; J0360; J0461; J0690; J0694; J1100; J1170; J1200; J1885; J2250; J2270; J2405; J2710; J2930; J3010; J3480; J7121; Q0162; U0002

== ENCOUNTER 2021-09-01 14:50 | Emergency (ER) | payer SELFPAY ==
[~2021-09-01] VITALS: Ht 177.8 cm; Wt 81.2 kg
[~2021-09-01 14:50] MED LIST: AMLODIPINE PO; HYDROCHLOROTHIA25 MG PO; LOSARTAN POTAS100 MG PO; NORVASC10 MG PO; PANTOPRAZOLE SO40 MG PO; TYLENOL # 31 EA PO
[2021-09-01] MEDS ORDERED: ONDANSETRON HCL INJ 2MG/ML 2ML 2 MG/ML VIAL IV NR (15:14)
[2021-09-01] MEDS ORDERED: Morphine 4mg Syringe 4 MG/ML INJ IV NR (15:15)
[2021-09-01] MEDS ORDERED: SODIUM CHLORIDE 0.9% 1000ML 1,000 ML IV ONE (15:15)
[2021-09-01 15:28] LABS: BASOPHILS % 0.5 % (0.0-1.0); EOSINOPHILS % 0.4 % (0.0-6.0); HEMATOCRIT 45.7 % (38.2-49.6); HEMOGLOBIN 16.1 g/dL (14.0-18.0); LYMPHOCYTES # (AUTO) 1.9 (1.0-3.2); LYMPHOCYTES % 23.3 % (18.0-39.1); MEAN CORPUSCULAR HEMOGLOBIN 32.3 pg (28-32); MEAN CORPUSCULAR HGB CONC 35.2 g/dL (31-35); MEAN CORPUSCULAR VOLUME 91.8 fL (81-99); MONOCYTES # (AUTO) 0.8 (0.2-0.8); MONOCYTES % 9.9 % (4.4-11.3); NEUTROPHILS # (AUTO) 5.4 (2.1-6.9); NEUTROPHILS % 64.9 % (38.7-80.0); PLATELET COUNT 255 x10e3/uL (140-360); RED BLOOD COUNT 4.98 x10e6/uL (4.3-5.7); RED CELL DISTRIBUTION WIDTH 12.1 % (11.7-14.4)
[2021-09-01 15:50] LABS: ALBUMIN 4.1 g/dL (3.5-5.0); ALBUMIN/GLOBULIN RATIO 1.1 (0.8-2.0); ANION GAP 16.5 mmol/L (8-16); CALCIUM 9.4 mg/dL (8.4-10.2); CREATININE, SERUM 0.86 mg/dL (0.72-1.25); POTASSIUM 3.5 mmol/L (3.5-5.1)
[2021-09-01] MEDS ORDERED: IOPAMIDOL 370 MG/ML 100 ML INFUS..BTL INJ ONE (16:13)
[2021-09-01 16:20] LABS: CLARITY,URINE CLEAR (CLEAR); COLOR,URINE YELLOW (YELLOW); KETONES,URINE 2+ (NEGATIVE); LEUKOCYTE ESTERASE ,URINE NEGATIVE (NEGATIVE); NITRITE,URINE NEGATIVE (NEGATIVE); PROTEIN,URINE DIPSTICK NEGATIVE (NEGATIVE)
[2021-09-01 16:21] LABS: URINE UROBILINOGEN 0.2 mg/dL (0.2 - 1)
[2021-09-01 16:32] LABS: BACTERIA,URINE FEW /HPF; EPITHELIAL CELLS,URINE MODERATE /LPF; RBC,URINE 0-5 /HPF (0-5); WBC,URINE (MAN) 0-5 /HPF (0-5)
[2021-09-01] MEDS ORDERED: KETOROLAC TROMETHAMINE 30 MG/ML VIAL IV STA (18:11)
[2021-09-01 18:25] VITALS: BP 156/99
== END 2021-09-01 18:27 | disposition home or self-care (01) ==
LOC: ER 15:18
DX: R10.32 Left lower quadrant pain (principal); I10 Essential (primary) hypertension; K76.0 Fatty (change of) liver, not elsewhere classified; Z98.0 Intestinal bypass and anastomosis status
CPT/HCPCS: 36415; 74177; 80053; 81001; 85025; 99284; J1885; J2270; J2405; J7030; Q9967

== ENCOUNTER 2021-12-21 21:55 | Observation (INO) | payer SELFPAY ==
[~2021-12-21] VITALS: Ht 180.3 cm; Wt 91.9 kg
[2021-12-21 22:20] LABS: BASOPHILS # (AUTO) 0.1 (0.0-0.1); BASOPHILS % 0.9 % (0.0-1.0); EOSINOPHILS # (AUTO) 0.1 (0.0-0.4); HEMATOCRIT 46.7 % (38.2-49.6); HEMOGLOBIN 16.3 g/dL (14.0-18.0); LYMPHOCYTES # (AUTO) 2.2 (1.0-3.2); LYMPHOCYTES % 31.8 % (18.0-39.1); MEAN CORPUSCULAR HEMOGLOBIN 32.2 pg (28-32); MEAN CORPUSCULAR HGB CONC 34.9 g/dL (31-35); MEAN CORPUSCULAR VOLUME 92.3 fL (81-99); MONOCYTES # (AUTO) 0.7 (0.2-0.8); NEUTROPHILS # (AUTO) 3.8 (2.1-6.9); PLATELET COUNT 231 x10e3/uL (140-360); RED BLOOD COUNT 5.06 x10e6/uL (4.3-5.7); RED CELL DISTRIBUTION WIDTH 12.2 % (11.7-14.4)
[2021-12-21] MEDS: SODIUM CHLORIDE 0.9% 1000ML 1,000 ML IV SCH (22:32)
[2021-12-21] MEDS ORDERED: ONDANSETRON HCL INJ 2MG/ML 2ML 2 MG/ML VIAL IV STA (22:32)
[2021-12-21 22:35] LABS: ALBUMIN 4.4 g/dL (3.5-5.0); ALBUMIN/GLOBULIN RATIO 1.3 (0.8-2.0); ANION GAP 17.7 mmol/L (8-16); CALCIUM 9.6 mg/dL (8.4-10.2); CREATININE, SERUM 0.87 mg/dL (0.72-1.25); POTASSIUM 3.7 mmol/L (3.5-5.1)
[2021-12-21 22:36] LABS: AMPHETAMINES SCREEN,URINE NEGATIVE (NEGATIVE); BENZODIAZEPINES SCREEN,URINE NEGATIVE (NEGATIVE); PHENCYCLIDINE SCREEN,URINE NEGATIVE (NEGATIVE)
[2021-12-21] MEDS ORDERED: ONDANSETRON HCL INJ 2MG/ML 2ML 2 MG/ML VIAL ONE (22:36)
[2021-12-21] MEDS ORDERED: SODIUM CHLORIDE 0.9% 1000ML 1,000 ML ONE (22:36)
[2021-12-21] MEDS ORDERED: Morphine 4mg INJECTION 4 MG/ML INJ ONE (22:36)
[2021-12-21 22:42] LABS: CREATINE KINASE MB 1.2 ng/mL (0-5.0)
[2021-12-21] MEDS ORDERED: ONDANSETRON HCL INJ 2MG/ML 2ML 2 MG/ML VIAL IV PRN (22:45)
[2021-12-21] MEDS ORDERED: Morphine 4mg INJECTION 4 MG/ML INJ IV PRN (22:45)
[2021-12-21] MEDS ORDERED: Morphine 4mg INJECTION 4 MG/ML INJ IV ONE (22:45)
[2021-12-22 00:18] VITALS: BP 161/99
[2021-12-22 00:20] VITALS: BP 158/95
[2021-12-22 04:50] VITALS: BP 151/86
[2021-12-22 06:08] LABS: BASOPHILS % 0.7 % (0.0-1.0); EOSINOPHILS # (AUTO) 0.1 (0.0-0.4); EOSINOPHILS % 2.4 % (0.0-6.0); HEMATOCRIT 41.7 % (38.2-49.6); HEMOGLOBIN 14.9 g/dL (14.0-18.0); LYMPHOCYTES # (AUTO) 1.9 (1.0-3.2); LYMPHOCYTES % 34.3 % (18.0-39.1); MEAN CORPUSCULAR HEMOGLOBIN 31.9 pg (28-32); MEAN CORPUSCULAR HGB CONC 35.7 g/dL (31-35); MEAN CORPUSCULAR VOLUME 89.3 fL (81-99); MONOCYTES # (AUTO) 0.6 (0.2-0.8); MONOCYTES % 11.6 % (4.4-11.3); NEUTROPHILS # (AUTO) 2.7 (2.1-6.9); NEUTROPHILS % 49.9 % (38.7-80.0); PLATELET COUNT 209 x10e3/uL (140-360); RED BLOOD COUNT 4.67 x10e6/uL (4.3-5.7); RED CELL DISTRIBUTION WIDTH 12.2 % (11.7-14.4)
[2021-12-22 06:33] LABS: ALBUMIN 3.7 g/dL (3.5-5.0); ALBUMIN/GLOBULIN RATIO 1.3 (0.8-2.0); ANION GAP 14.6 mmol/L (8-16); CALCIUM 8.6 mg/dL (8.4-10.2); CREATININE, SERUM 0.84 mg/dL (0.72-1.25); POTASSIUM 3.6 mmol/L (3.5-5.1)
[2021-12-22] MEDS: SODIUM CHLORIDE 0.9% 1000ML 1,000 ML IV SCH (06:45)
[2021-12-22 06:57] LABS: CREATINE KINASE MB 0.9 ng/mL (0-5.0)
[2021-12-22 08:06] VITALS: BP 165/95
[2021-12-22 08:18] VITALS: BP 165/95
[2021-12-22] MEDS ORDERED: AMLODIPINE BESYLATE 10 MG TAB PO SCH (09:00)
[2021-12-22 10:20] LABS: CHOL/HDL RATIO 1.8 (3.9-4.7)
[2021-12-22 11:35] VITALS: BP 147/87
[2021-12-22] MEDS ORDERED: ENOXAPARIN SOD INJ 40 MG/0.4 ML SYR SC SCH (17:00)
[2021-12-23] MEDS ORDERED: PANTOPRAZOLE SOD 40 MG TABEC PO SCH (07:30)
[2021-12-23] MEDS ORDERED: ASPIRIN 325 MG TAB PO SCH (09:00)
== END 2021-12-22 12:15 | disposition home or self-care (01) ==
LOC: ER 21:57 → ERHOLD 22:36 → MED/SURG2 23:26
PROVIDERS: ADMIT Internal Medicine; ATTEND Internal Medicine
DX: R07.89 Other chest pain (principal); Z53.29 Procedure and treatment not carried out because of patient's decision for other reasons; I10 Essential (primary) hypertension; R74.01 Elevation of levels of liver transaminase levels; K21.9 Gastro-esophageal reflux disease without esophagitis; Z20.822 Contact with and (suspected) exposure to COVID-19
CPT/HCPCS: 36415 ×2; 71045; 80053 ×2; 80061; 80307; 80320; 82550 ×2; 82553 ×2; 83690; 83880; 84484 ×2; 85025 ×2; 85379; 93005; 94799 ×2; 96361; 99284; G0378 ×2; J2270; J2405; J7030 ×2; U0002

== ENCOUNTER 2024-11-05 06:17 | Emergency (ER) | payer SELFPAY ==
[~2024-11-05] VITALS: Ht 180.3 cm; Wt 90.7 kg
[~2024-11-05 06:17] MED LIST changes: +CEFDINIR300 MG PO
[2024-11-05 07:08] LABS: BASOPHILS % 0.7 % (0.0-1.0); EOSINOPHILS % 0.2 % (0.0-6.0); LYMPHOCYTES % 17.8 % (18.0-39.1); MONOCYTES % 8.9 % (4.4-11.3); NEUTROPHILS % 71.4 % (38.7-80.0); RED CELL DISTRIBUTION WIDTH 12.2 % (11.7-14.4)
[2024-11-05 07:20] LABS: EST GLOMERULAR FILTRATION RATE 98.0 ML/MIN (>=60)
[2024-11-05] MEDS ORDERED: IOPAMIDOL 370 MG/ML 100 ML INFUS..BTL INJ ONE (07:38)
[2024-11-05] MEDS: KETOROLAC TROMETHAMINE 30 MG/ML VIAL IV STA (08:21)
[2024-11-05] MEDS: SODIUM CHLORIDE 0.9% 1000ML 1,000 ML IV ONE (08:22)
[2024-11-05] MEDS: ONDANSETRON HCL INJ 2MG/ML 2ML 2 MG/ML VIAL IV STA (08:22)
[2024-11-05 08:31] LABS: LEUKOCYTE ESTERASE ,URINE NEGATIVE (NEGATIVE); PROTEIN,URINE DIPSTICK NEGATIVE (NEGATIVE)
[2024-11-05 08:32] LABS: EPITHELIAL CELLS,URINE FEW /LPF; URINE UROBILINOGEN 0.2 mg/dL (0.2 - 1); WBC,URINE (MAN) 0-5 /HPF (0-5)
[2024-11-05 10:34] VITALS: PULSE 64; RESP 17; TEMP 98.4; O2SAT 100
[2024-11-05 10:42] VITALS: TEMP 98.3
== END 2024-11-05 10:46 | disposition home or self-care (01) ==
LOC: ER 06:41
DX: R10.30 Lower abdominal pain, unspecified (principal); I10 Essential (primary) hypertension; Z98.0 Intestinal bypass and anastomosis status
CPT/HCPCS: 36415; 74177; 80053; 81001; 83690; 85025; 99284; J1885; J2405; J7030; Q9967